=== PATIENT | male | born 1970 | race Two or more races ===

== ENCOUNTER 2017-01-29 13:46 | Emergency (ER) | payer OTHER ==
[2017-01-29 14:02] VITALS: BP 145/97; PULSE 88; TEMP 97.5; BMI 32.8
--- NOTE | 2017-01-29 15:46 | PDOC ---
History of Present Illness - General History Source: Patient Exam Limitations: No Limitations - History of Present Illness Initial Comments: 01/29/17 16:30 The patient is a 46 year old male with significant past medical history of diabetes who presents to the emergency department with bilateral lower extremity pain for a few hours. The patient states he was driving when he suddenly started to have pain in the bilateral shoulders. He states he pulled over and and also started to develop pain in the the bilateral lower extremities. The patient describes the pain as dull and aching in nature. He reports body aches and associated chills. The patient denies any recent illness. He denies any numbness and tingling in his upper and lower extremities bilaterally. He denies chest pain or SOB. He denies lightheadedness. He did not have his flu shot this year. <Kallei Killian - Last Filed: 01/29/17 16:29> <Gregorio Conte - Last Filed: 01/29/17 19:26> - General Chief Complaint: Weakness Stated Complaint: LT SIDE NUMBNESS Time Seen by Provider: 01/29/17 15:01 Past History <Kallie Killian - Last Filed: 01/29/17 16:29> - Past Medical History Diabetes: Yes - Psycho/Social/Smoking Cessation Hx Suicidal Ideation: No Smoking History: Never smoked Hx Alcohol Use: No Drug/Substance Use Hx: No Substance Use Type: None <Gregorio Conte - Last Filed: 01/29/17 19:26> - Past Medical History Allergies/Adverse Reactions: Allergies Allergy/AdvReac Type Severity Reaction Status Date / Time Penicillins Allergy Verified 01/29/17 13:56 Home Medications: Ambulatory Orders Insulin (Levemir) [Levemir Vial] 10 unit SQ DAILY #30 dose 01/29/17 Tramadol HCl 50 mg PO BID PRN #10 tablet MDD 2 01/29/17 Review of Systems - Review of Systems Constitutional: Yes: Chills. No: Fever Respiratory: No: Cough, Shortness of Breath Cardiac (ROS): No: Chest Pain ABD/GI: No: Diarrhea, Nausea, Vomiting Musculoskeletal: Yes: Muscle Pain All Other Systems: Reviewed and Negative <Gregorio Conte - Last Filed: 01/29/17 19:26> *Physical Exam - Vital Signs Last Vital Signs Temp Pulse Resp BP Pulse Ox 97.5 F L 88 18 145/97 100 01/29/17 13:56 01/29/17 13:56 01/29/17 13:56 01/29/17 13:56 01/29/17 13:56 - Physical Exam Comments: 01/29/17 16:30 GENERAL: The patient is awake, alert, and fully oriented, in no acute distress. HEAD: Normal with no signs of trauma. EYES: Pupils equal, round and reactive to light, extraocular movements intact, sclera anicteric, conjunctiva clear with no pallor. ENT: Ears normal, nares patent, oropharynx clear without exudates. Moist mucous membranes. NECK: Normal range of motion, supple without lymphadenopathy, JVD, or masses. LUNGS: Breath sounds equal, clear to auscultation bilaterally. No wheeze/ crackles. HEART: Regular rate and rhythm, normal S1 and S2 without murmur or rub. ABDOMEN: Soft/nontender/nondistended. BS wnl. No guarding or rebound. No palpable masses. No hepatosplenomegaly. EXTREMITIES: Normal range of motion, no edema. No clubbing or cyanosis. No cords, erythema, or tenderness. NEUROLOGICAL: Cranial nerves II through XII grossly intact. Normal speech, normal gait. PSYCH: Normal mood, normal affect. SKIN: Warm, Dry, normal turgor, no rashes or lesions noted. <Kallie Killian - Last Filed: 01/29/17 16:29> - Vital Signs Last Vital Signs Temp Pulse Resp BP Pulse Ox 97.5 F L 88 18 145/97 100 01/29/17 13:56 01/29/17 13:56 01/29/17 13:56 01/29/17 13:56 01/29/17 13:56 <Gregorio Conte - Last Filed: 01/29/17 19:26> Heart Score/ECG Review #1 ECG reviewed & interpreted by me at: 17:20 General ECG Interpretation: Sinus Rhythm, Normal Rate (96), Normal Intervals, No acute ischemic changes (Slight OH depression, no ST changes) <Gregorio Conte - Last Filed: 01/29/17 19:26> ED Treatment Course - LABORATORY CBC & Chemistry Diagram: 01/29/17 16:10 01/29/17 16:10 - Medications Given in the ED: ED Medications Discontinued Medications Generic Name Dose Route Start Last Admin Trade Name Chip PRN Reason Stop Dose Admin Tramadol HCl 50 mg 01/29/17 15:51 01/29/17 16:16 Ultram - PO 01/29/17 15:52 50 mg ONCE ONE Administration <Kallie Killian - Last Filed: 01/29/17 16:29> - LABORATORY CBC & Chemistry Diagram: 01/29/17 16:10 01/29/17 16:10 <Gregorio Conte - Last Filed: 01/29/17 19:26> Medical Decision Making - Medical Decision Making 01/29/17 16:12 A portion of this note was documented by scribe services under my direction. I have reviewed the details of the note, within reason, and agree with the documentation with the following case summary and management plan written by me. 46-year-old male with insulin-dependent diabetes, noncompliant with follow-up but normally takes his insulin until 2 days ago now presents with relatively acute onset of bilateral arm and leg pain this afternoon with some chills. No cardio pulmonary complaints. no URI/infectious sxs. VSS exam wnl, nvi 46-year-old male with generalized myalgia/neuropathic pain, question secondary to hyperglycemia from insulin noncompliance. Possible influenza, but seems less likely. No cardio pulmonary or GI complaints. Exam is normal. He is well- appearing. Check labs, IV fluids EKG Pain control Reassess 01/29/17 17:40 Hyperglycemia without DKA, CBC normal. EKG without acute ischemic changes. Given IV fluids, given IV insulin. 01/29/17 19:17 Fingerstick 326. Feels well, sxs resolved after tramadol. Agrees with d/c plan. Given no PMD at the moment, will refill his usual Levemir prescription and provide 3d Tramadol. Understands return criteria, will give new PMD f/u. <Gregorio Conte - Last Filed: 01/29/17 19:26> *DC/Admit/Observation/Transfer - Attestations Scribe Attestion: 01/29/17 16:30 Documentation prepared by Kallie Killian, acting as medical claims manager for Gregorio Conte MD. <Kallie Killian - Last Filed: 01/29/17 16:29> <Gregorio Conte - Last Filed: 01/29/17 19:26> Diagnosis at time of Disposition: Hyperglycemia, Myalgia - Discharge Dispostion Disposition: HOME Condition at time of disposition: Stable - Prescriptions Prescriptions: Tramadol HCl 50 mg PO BID PRN #10 tablet MDD 2 PRN Reason: Pain - Referrals Referrals: John Walls MD [Staff Physician] - Henrique Burns MD [Staff Physician] - - Patient Instructions Printed Discharge Instructions: DI for Diabetic Neuropathy, DI for Hyperglycemia -- Adult Additional Instructions: Activity as tolerated. Stay hydrated. Blood tests today showed elevated sugar levels, but no other abnormalities. You were given a dose of insulin. Continue Levemir as prescribed. Take Tramadol as prescribed as needed for pain. You need to re-establish care with a primary physician. Consider calling Dr. Walls for an appointment. Also consider seeing a neurologist if symptoms persist. Return to the ER for any new or concerning symptoms, including persistently elevated sugar, vomiting or fever, worsening pain or numbness, chest pain or shortness of breath.
[2017-01-29] MEDS ORDERED: SODIUM CHLORIDE 1,000 ML IV ONE (15:48)
[2017-01-29] MEDS ORDERED: traMADol HCL 50 MG TABLET PO ONE (15:51)
[2017-01-29] MEDS ORDERED: traMADol HCL 50 MG TABLET ONE (15:56)
[2017-01-29 17:13] LABS: ALBUMIN 3.7 g/dl (3.4-5.0); ANION GAP 12 (8-16); BILIRUBIN,TOTAL 0.9 mg/dL (0.2-1.0); CALCIUM 9.2 mg/dL (8.5-10.1); CO2 25 mmol/L (21-32); CREATININE 1.1 mg/dL (0.7-1.3); SGPT/ALT 39 U/L (12-78); TOT PROT 7.3 g/dl (6.4-8.2)
[2017-01-29 17:14] LABS: ALK PHOS 138 U/L (45-117)
[2017-01-29 17:15] LABS: BASOPHIL 0.5 % (0-2.0); EOSINOPHIL 0.3 % (0-4.5); MCH 29.4 pg (25.7-33.7); MEAN CELL VOLUME 89.2 fl (80-96); MEAN PLT VOLUME 10.6 fl (7.5-11.1); NEUTROPHILS 84.4 % (42.8-82.8); PLATELET COUNT 129 K/MM3 (134-434); RDW 12.7 % (11.9-15.9)
[2017-01-29 17:22] LABS: GLUCOSE,RANDOM 587 mg/dL (74-106); SGOT/AST 18 U/L (15-37)
[2017-01-29] MEDS ORDERED: INSULIN REGULAR HUMAN 100 UNITS/ML *VIAL IVPUSH ONE (17:33)
[2017-01-29 17:52] LABS: URINE APPEARANCE CLEAR; URINE BILIRUBIN NEGATIVE (NEGATIVE); URINE BLOOD NEGATIVE (NEGATIVE); URINE COLOR STRAW; URINE GLUCOSE (UA) 3+ (NEGATIVE); URINE KETONE TRACE (NEGATIVE); URINE LEUK ESTERASE NEGATIVE (NEGATIVE); URINE NITRITE NEGATIVE (NEGATIVE); URINE PROTEIN NEGATIVE (NEGATIVE); URINE UROBILINOGEN NEGATIVE E.U./dl (0.2-1.0)
[2017-01-29] MEDS ORDERED: INSULIN REGULAR HUMAN 100 UNITS/ML *VIAL ONE (18:04)
--- NOTE | 2017-01-30 10:45 | EKG ---
Test Reason : Blood Pressure : / mmHG Vent. Rate : 096 BPM Atrial Rate : 096 BPM P-R Int : 156 ms QRS Dur : 074 ms QT Int : 350 ms P-R-T Axes : 060 048 047 degrees QTc Int : 442 ms NORMAL SINUS RHYTHM POSSIBLE LEFT ATRIAL ENLARGEMENT SEPTAL INFARCT , AGE UNDETERMINED ABNORMAL ECG WHEN COMPARED WITH ECG OF 29-JAN-2017 13:52, SEPTAL INFARCT IS NOW PRESENT ST NO LONGER ELEVATED IN ANTERIOR LEADS Confirmed by TESSA TORRES MD ([id number]) on 01/30/2017 10:45:34 AM Referred By: Confirmed By:TESSA TORRES MD
--- NOTE | 2017-02-01 14:58 | EKG ---
Test Reason : Blood Pressure : / mmHG Vent. Rate : 075 BPM Atrial Rate : 075 BPM P-R Int : 150 ms QRS Dur : 098 ms QT Int : 396 ms P-R-T Axes : 050 055 048 degrees QTc Int : 442 ms NORMAL SINUS RHYTHM POOR DATA QUALITY, INTERPRETATION MAY BE ADVERSELY AFFECTED Confirmed by HUBERT CELAYA MD ([id number]) on 02/01/2017 2:58:30 PM Referred By: Confirmed By:HUBERT CELAYA MD
== END 2017-01-29 19:30 | disposition home or self-care (01) ==
LOC: JER 13:46
PROC: 3E033VG Introduction of Insulin into Peripheral Vein, Percutaneous Approach (ICD-10-PCS; principal; 2017-01-29)
PROC: 3E0337Z Introduction of Electrolytic and Water Balance Substance into Peripheral Vein, Percutaneous Approach (ICD-10-PCS; 2017-01-29)
DX: E11.65 Type 2 diabetes mellitus with hyperglycemia (principal); M79.1 Myalgia; Z79.4 Long term (current) use of insulin
CPT/HCPCS: 36415; 80053; 81003; 82009; 85025; 87804; 93005; 93010; 99283-25